=== PATIENT | female | born 1955 | race Caucasian/White ===

== ENCOUNTER 2017-10-16 16:55 | Emergency (ER) | payer OTHER ==
[2017-10-16 18:40] VITALS: BP 148/98; PULSE 84; RESP 16; TEMP 98.7
[2017-10-16] MEDS ORDERED: HYDROcodone/APAP 5-325MG 1 EACH TAB PO STA (18:55)
--- NOTE | 2017-10-16 19:03 | ED ---
General Adult HPI - General Chief complaint: Back Pain/Injury Stated complaint: Back Pain Time Seen by Provider: 10/16/17 18:44 Source: patient, RN notes reviewed Mode of arrival: ambulatory Limitations: no limitations - History of Present Illness Initial comments: 62-year-old female presents to the emergency department for a chief complaint of left sciatic pain times years. Pain has been exacerbated in the past few weeks. Patient states she usually takes [place] for the pain but tested positive for cocaine so her pain doctor refuses to treat her any longer. Patient denies having taken or used cocaine and states an antibiotic is what caused her to test positive. Patient denies any acute injuries. Patient denies any bladder or bowel changes and is urinating frequently. Patient denies IV drug abuse. Patient denies any fever or chills. Patient has no other complaints at this time including shortness of breath, chest pain, abdominal pain, nausea or vomiting, headache, or visual changes. - Related Data Home Medications Medication Instructions Recorded Confirmed Albuterol Inhaler [Ventolin Hfa 1 - 2 puff INHALATION RT-Q6H PRN 07/27/14 Inhaler] Fluticasone Propionate [Flonase 1 spray EA NOSTRIL DAILY 07/27/14 07/28/14 Allergy Relief] HYDROcodone/APAP 10-325MG [[place] 1 tab PO Q8HR PRN 07/27/14 07/28/14 10-325] Isosorbide Mononitrate [Isosorbide 30 mg PO DAILY 07/27/14 07/28/14 Mononitrate ER] Levothyroxine Sodium [Synthroid] 50 mcg PO DAILY 07/27/14 07/28/14 Nitroglycerin Sl Tabs [Nitrostat] 0.4 mg SUBLINGUAL Q5M PRN 07/27/14 07/28/14 Omeprazole [PriLOSEC] 20 mg PO BID 07/27/14 07/28/14 Simvastatin [Zocor] 40 mg PO HS 07/27/14 07/28/14 Cetirizine HCl [Zyrtec] 10 mg PO DAILY 07/28/14 07/28/14 Metoprolol Tartrate [Lopressor] 50 mg PO BID 07/28/14 07/28/14 Previous Rx's Medication Instructions Recorded predniSONE 50 mg PO DAILY #5 tablet 10/16/17 Allergies Allergy/AdvReac Type Severity Reaction Status Date / Time bupropion HCl Allergy Unknown Verified 07/28/14 14:30 [From Wellbutrin] divalproex sodium Allergy Unknown Verified 07/28/14 14:30 [From Depakote] NSAIDS (Non-Steroidal Allergy Unknown Verified 07/28/14 14:30 Anti-Inflamma Penicillins Allergy Unknown Verified 07/28/14 14:30 pregabalin [From Lyrica] Allergy Unknown Verified 07/28/14 14:30 prochlorperazine edisylate Allergy Unknown Verified 07/28/14 14:30 [From Compazine] prochlorperazine maleate Allergy Unknown Verified 07/28/14 14:30 [From Compazine] sulfamethoxazole Allergy Unknown Verified 07/28/14 14:30 [From Bactrim] trimethoprim [From Bactrim] Allergy Unknown Verified 07/28/14 14:30 Review of Systems ROS Statement: Those systems with pertinent positive or pertinent negative responses have been documented in the HPI. ROS Other: All systems not noted in ROS Statement are negative. Past Medical History Past Medical History: COPD, Fibromyalgia, Hyperlipidemia, Hypertension, Osteoarthritis (OA), Rheumatoid Arthritis (RA) History of Any Multi-Drug Resistant Organisms: None Reported Past Surgical History: Hernia Repair, Tubal Ligation Additional Past Surgical History / Comment(s): Umbilical hernia repair Past Anesthesia/Blood Transfusion Reactions: No Reported Reaction Past Psychological History: Anxiety, Bipolar, Depression Smoking Status: Current every day smoker Past Alcohol Use History: None Reported Past Drug Use History: Marijuana - Past Family History Father Family Medical History: Cancer Additional Family Medical History / Comment(s): father from lung ca , also had aortic valve replacement Mother Family Medical History: Hypertension Sister(s) Family Medical History: Cancer Additional Family Medical History / Comment(s): 1 sister that from lung ca, 1 sister from brain aneurysm, 1 sister that passed due to crohn's disease General Exam Limitations: no limitations General appearance: alert, in no apparent distress Head exam: Present: atraumatic, normocephalic, normal inspection Eye exam: Present: normal appearance ENT exam: Present: normal exam, mucous membranes moist Neck exam: Present: normal inspection, full ROM. Absent: tenderness, meningismus, lymphadenopathy Respiratory exam: Present: normal lung sounds bilaterally. Absent: respiratory distress, wheezes, rales, rhonchi, stridor Cardiovascular Exam: Present: regular rate, normal rhythm, normal heart sounds. Absent: systolic murmur, diastolic murmur, rubs, gallop, clicks Extremities exam: Present: other (sensation intact in BLE. pedal pulse 2+ and cap refill < 2 seconds in BLE.) Back exam: Absent: full ROM (patient has 60 flexion and 20 extension of lumbar spine which patient states is norml for her.), tenderness (no thoracic or lumbar spine tenderness) Course Vital Signs 10/16/17 18:38 Temperature 98.7 F Pulse Rate 84 Respiratory 16 Rate Blood Pressure 148/98 O2 Sat by Pulse 94 L Oximetry Medical Decision Making - Medical Decision Making 62-year-old female presents to the emergency department for a chief complaint of left sciatic pain times weeks. Patient has had chronic sciatic pain and has been on narcotics but her pain medicine doctor refuses to treat her at this point. Patient has an appointment with a new pain medicine doctor in 3 months. Patient denies any acute injuries. Patient denies any bladder or bowel changes. On exam neurovascular intact in lower extremities bilaterally. Patient has some limited range of motion of the lumbar spine which she states is normal for her. Patient denies any pain out of proportion than normal for her. Patient was given a [place] in the emergency department. She was not given a prescription for narcotics due to her history. Patient was given a prescription for steroids. She refused a steroid shot. She is aware she needs to return to the emergency Department if she has worsening symptoms or cannot urinate. She will follow up with primary care in 1-2 days. Disposition Clinical Impression: Left sciatic nerve pain Disposition: HOME SELF-CARE Condition: Good Instructions: Sciatica (ED) Additional Instructions: Please take your steroid as directed. Take Tylenol for pain. Follow-up with primary care in 1-2 days. Return to the emergency department if you have worsening symptoms including urinary symptoms. Prescriptions: predniSONE 50 mg PO DAILY #5 tablet Is patient prescribed a controlled substance at d/c from ED?: No Referrals: Addison Flanagan MD [Primary Care Provider] - 1-2 days Time of Disposition: 19:01
== END 2017-10-16 19:08 | disposition home or self-care (01) ==
LOC: EC 16:55
DX: M54.32 Sciatica, left side (principal); G89.29 Other chronic pain; R35.0 Frequency of micturition; J44.9 Chronic obstructive pulmonary disease, unspecified; E78.5 Hyperlipidemia, unspecified; I10 Essential (primary) hypertension; F17.200 Nicotine dependence, unspecified, uncomplicated; Z79.51 Long term (current) use of inhaled steroids; Z79.899 Other long term (current) drug therapy; Z88.8 Allergy status to other drugs, medicaments and biological substances; Z88.6 Allergy status to analgesic agent; Z88.0 Allergy status to penicillin; Z88.2 Allergy status to sulfonamides; Z53.29 Procedure and treatment not carried out because of patient's decision for other reasons
CPT/HCPCS: 99283

== ENCOUNTER → 2019-05-27 | Outpatient (CLI) | payer OTHER ==
--- NOTE | 2019-05-27 15:58 | MR ---
EXAMINATION TYPE: MR brain wo/w con DATE OF EXAM: 05/27/2019 COMPARISON: None HISTORY: Dizziness, bilateral hearing loss, brain lesion TECHNIQUE: Multiplanar, multisequence images of the brain and brainstem is performed without and with IV contras t, utilizing 7 mL intravenous Gadavist . FINDINGS: Diffusion weighted images demonstrate no evidence of a recent infarct or other diffusion ab normality. There is no extra-axial fluid collection. Scattered periventricular and subcortical and j uxtacortical white matter hyperintensities are present on inversion recovery T2-weighted sequences. T he largest on axial image #19 measures approximately 12 mm in AP dimension by 5 mm in transverse dime nsion, there are approximately 10 lesions. In the periventricular white matter on the left there is a focus of low signal on T1, inversion recovery and T2-weighted sequences suggestive of hemosiderin bl oom. The ventricular system and cisternal spaces are normal in size and appearance. The brain volume is age appropriate. Midline structures demonstrate normal morphology, mild prominence of the cerebellopontine angle ciste rn on the left as compared to right may be normal variant rather than represent possible arachnoid cy st.. The craniocervical junction appears within normal limits. Post contrast images demonstrate no abnormal enhancement. The dural venous sinuses appear patent. The visualized sinuses are markable for air-fluid level in the left maxillary sinus and the globes are intact. IMPRESSION: Nonspecific white matter demyelination. Small focus of hemosiderin suspected in the deep white matter on the left may represent remote hemorrhage. Correlate for left maxillary sinusitis. Add itional findings above.
== END | disposition home or self-care (01) ==
LOC: RADMRIMAIN 14:30
PROVIDERS: ATTEND Physician Assistant
DX: R90.89 Other abnormal findings on diagnostic imaging of central nervous system (principal)
CPT/HCPCS: 70553; A9585

== ENCOUNTER 2022-10-12 17:59 | Emergency (ER) | payer OTHER, MEDICARE ==
[2022-10-12] MEDS ORDERED: SODIUM CHLORIDE 0.9% 1,000 ML IV ONE (18:20)
[2022-10-12 18:45] LABS: Basophils # (A) 0.1 k/uL (0-0.2); Basophils % (A) 1 %; Eosinophils % (A) 0 %; HCT 35.5 % (34.0-46.0); HGB 11.8 gm/dL (11.4-16.0); Lymphocytes # (A) 0.6 k/uL (1.0-4.8); Lymphocytes % (A) 8 %; MCH 29.8 pg (25.0-35.0); MCHC 33.2 g/dL (31.0-37.0); MCV 89.8 fL (80.0-100.0); Mean Platelet Volume 7.3; Monocytes # (A) 0.3 k/uL (0-1.0); Monocytes % (A) 4 %; Neutrophils % (A) 86 %; Platelet Count 341 k/uL (150-450); RBC 3.96 m/uL (3.80-5.40); RDW 14.7 % (11.5-15.5)
--- NOTE | 2022-10-12 18:54 | CT ---
EXAMINATION TYPE: CT brain jesse wo con DATE OF EXAM: 10/12/2022 COMPARISON: None HISTORY: AMS and multiple falls. CT DLP: 988.[address] of the brain was performed. The ventricles, basal cisterns and sulci overlying the cerebral convexities demonstrate mild enlargem ent. Small focus of increased signal measuring 3 mm left centrum semiovale may reflect a small focus of c alcification although a small petechial hemorrhage is difficult to exclude. No Additional hyperdense foci seen at this time. There is decreased attenuation about the periventricular white matter and michael p white matter of both cerebral hemispheres, compatible with chronic small vessel ischemia. No mass effects are seen. If symptoms persist consider MRI. Osseous calvarium is intact. IMPRESSION: 1. Small focus of increased signal measuring 3 mm left centrum semiovale may reflect a small focus of calcification although a small petechial hemorrhage is difficult to exclude. CT Cervical Spine: Unenhanced CT of the cervical spine was performed with bone and soft tissue window settings submitted . Coronal and sagittal reconstruction is obtained. There is normal alignment and prevertebral soft tissues. No evidence for acute cervical fracture . Scattered degenerative disc disease and spondylosis. Biapical scarring. IMPRESSION: 1. No evidence for acute fracture or subluxation of the cervical spine.
--- NOTE | 2022-10-12 18:55 | CT ---
EXAMINATION TYPE: CT facial bones wo con DATE OF EXAM: 10/12/2022 COMPARISON: none HISTORY: AMS and multiple falls CT DLP: 988.[address] of the facial bones was performed in the axial and coronal planes. Bone and soft tissu e window settings are submitted. Right infraorbital soft tissue swelling noted. I do not see evidence for displaced facial bone fracture or depressed facial bone fracture. The globes are intact. Paranasal sinuses are well-aerated. IMPRESSION: 1. No evidence for depressed or displaced facial bone fracture.
--- NOTE | 2022-10-12 18:56 | XR ---
EXAMINATION TYPE: XR chest 2V DATE OF EXAM: 10/12/2022 COMPARISON: NONE HISTORY: Shortness of breath TECHNIQUE: Frontal and lateral views of the chest are obtained. FINDINGS: Scattered senescent parenchymal changes noted. Hyperinflation compatible with COPD. No evidence for infiltrate. No evidence for atelectasis. Heart size is stable. Mediastinal structures are stable and grossly unremarkable. No evidence for hilar prominence. Degenerative changes dorsal spine. IMPRESSION: 1. No evidence for acute pulmonary disease.
--- NOTE | 2022-10-12 18:56 | XR ---
EXAMINATION TYPE: XR pelvis AP view DATE OF EXAM: 10/12/2022 CLINICAL HISTORY: pain TECHNIQUE: Single view the pelvis is submitted. FINDINGS: No evidence for fracture, dislocation or bony lesion. Joint spaces are well-preserved. S I joints appear symmetric. IMPRESSION: 1. No acute fracture or dislocation seen. ICD 10 NO FRACTURE, INITIAL EVALUATION
[2022-10-12 18:57] LABS: ALT 44 U/L (4-34); AST 59 U/L (14-36); African American GFR (CKD) 53 (>60 ml/min/1.73 sqM); Alcohol <10 mg/dL; Alkaline Phosphatase 104 U/L (38-126); Anion Gap 7 mmol/L; Blood Urea Nitrogen 17 mg/dL (7-17); Calcium 8.7 mg/dL (8.4-10.2); Carbon Dioxide 30 mmol/L (22-30); Chloride 104 mmol/L (98-107); Glucose 122 mg/dL (74-99); Non-African American GFR(CKD) 46 (>60 ml/min/1.73 sqM); Partial Thromboplastin Time 23.2 sec (22.0-30.0); Potassium 4.7 mmol/L (3.5-5.1); Prothrombin Time 10.5 sec (9.0-12.0); Sodium 141 mmol/L (137-145); Total Bilirubin 0.6 mg/dL (0.2-1.3); Total Protein 6.9 g/dL (6.3-8.2)
[2022-10-12 19:36] VITALS: RESP 16; TEMP 99.9
[2022-10-12 20:05] LABS: Appearance,Urine Cloudy (Clear); Bacteria,Urine Few /hpf; Bilirubin,Urine Negative (Negative); Blood,Urine Negative (Negative); Color,Urine Yellow; Glucose,Urine (UA) Negative (Negative); Ketones,Urine Negative (Negative); Leukocyte Esterase,Urine Small (Negative); Mucus,Urine Rare /hpf; Nitrite,Urine Negative (Negative); Protein,Urine Negative (Negative); RBC,Urine 2 /hpf (0-5); Specific Gravity,Urine 1.013 (1.001-1.035); Squamous Epithelial Cell,Urine 15 /hpf (0-4); Urobilinogen,Urine <2.0 mg/dL (<2.0); WBC,Urine 3 /hpf (0-5)
[2022-10-12 20:07] LABS: Amphetamine Screen,Urine Not Detected (NotDetected); Barbiturate Screen,Urine Not Detected (NotDetected); Benzodiazepines Screen,Urine Not Detected (NotDetected); Cocaine Screen,Urine Not Detected (NotDetected); Methadone Screen, Urine Not Detected (NotDetected); Opiate Screen,Urine Not Detected (NotDetected); Oxycodone Screen, Urine Not Detected (NotDetected); Phencyclidine Screen,Urine Not Detected (NotDetected); Tricyclic Antidepressant,Urine Detected (NotDetected); Urn Cannabinoid Scrn Detected (NotDetected)
[2022-10-12] MEDS ORDERED: TRANEXAMIC 1,000 MG/100ML-NACL 1,000 MG in SALINE 1 100ML.BAG IV STA (20:12)
[2022-10-12] MEDS ORDERED: niCARdipine 20 MG in SODIUM CHLORIDE 0.9% 192 ML IV SCH (20:15)
[2022-10-12 20:44] LABS: VBG PH 7.51 (7.31-7.41)
--- NOTE | 2022-10-12 21:17 | ED ---
General Adult HPI - General Chief complaint: Altered Mental Status Stated complaint: Altered Mental Status Time Seen by Provider: 10/12/22 18:12 Source: family, EMS, RN notes reviewed, old records reviewed Mode of arrival: EMS Limitations: no limitations - History of Present Illness Initial comments: Patient is a 67-year-old female with unknown past medical history who presents via EMS for altered mental status multiple falls over the last week. Apparently a neighbor called EMS and states that the patient has been falling more recently is seems or confused as well. Patient is unable to provide much history. She is alert and oriented 2. Moving all 4 extremities without issue. No real tenderness to palpation anywhere. She does have bruising under the right eye. No other acute complaints at this time. She cannot provide any significant past medical history at this time. Unknown if she is on tenderness. Unknown last fall. Per EMS, they can multiple but they also do not know when the last fall was. - Related Data Home Medications Medication Instructions Recorded Confirmed Buprenorphine HCl/Naloxone HCl 1 film SL BID 10/12/22 10/12/22 [Suboxone 12 mg-3 mg Sl Film] Cetirizine HCl [Zyrtec] 10 mg PO DAILY 10/12/22 10/12/22 Escitalopram [Lexapro] 10 mg PO DAILY 10/12/22 10/12/22 Escitalopram [Lexapro] 20 mg PO DAILY 10/12/22 10/12/22 Levothyroxine Sodium [Synthroid] 50 mcg PO DAILY 10/12/22 10/12/22 Omeprazole [PriLOSEC] 20 mg PO BID 10/12/22 10/12/22 QUEtiapine [SEROquel] 25 mg PO HS 10/12/22 10/12/22 QUEtiapine [SEROquel] 200 mg PO HS 10/12/22 10/12/22 clonazePAM [KlonoPIN] 0.5 mg PO TID 10/12/22 10/12/22 lamoTRIgine [LaMICtal ODT] 200 mg PO DAILY 10/12/22 10/12/22 Allergies Allergy/AdvReac Type Severity Reaction Status Date / Time Unable to Assess Allergy Verified 10/12/22 18:33 Review of Systems ROS Statement: Those systems with pertinent positive or pertinent negative responses have been documented in the HPI. ROS Other: All systems not noted in ROS Statement are negative. Past Medical History Past Medical History: Unable to Obtain History of Any Multi-Drug Resistant Organisms: Unobtainable Past Surgical History: Unable to Obtain Past Psychological History: Unable to Obtain Smoking Status: Unknown if ever smoked Past Alcohol Use History: Unable to Obtain Past Drug Use History: Unable to Obtain General Exam - General Exam Comments Initial Comments: General: Appears in no acute distress. HEAD: Normal with no signs of head trauma. Negative downing sign. Negative raccoon eyes. Patient does have bruising under the right eye. Appears to be a few days old. EYES: PERRLA, EOMI, conjunctiva normal, no discharge. Pupils are 3 mm and equal bilaterally. ENT: Hearing grossly intact, normal oropharynx. RESPIRATORY: Clear breath sounds bilaterally. No wheezes, rales, or rhonchi. C/V: Regular rate and rhythm. S1 and S2 auscultated, peripheral pulses 2+ and intact throughout ABD: Abd is soft, nontender, nondistended EXT: Normal range of motion, no obvious deformity. Pelvis is stable. No midline spine tenderness palpation or deformities. SKIN: Bruising under right eye NEURO: Alert and oriented 2 which is below her baseline. Oriented to person as well as place. Appears to have cranial nerves II through XII intact. No obvious deficits. GCS is 15. NIH, other than the confusion, is 0. Limitations: no limitations Course Vital Signs 10/12/22 10/12/22 10/12/22 18:27 19:30 20:00 Temperature 99.6 F 99.9 F H Pulse Rate 94 84 88 Respiratory 20 16 16 Rate Blood Pressure 139/87 142/83 150/86 O2 Sat by Pulse 95 95 95 Oximetry 10/12/22 10/12/22 21:00 21:48 Temperature Pulse Rate 80 80 Respiratory 16 16 Rate Blood Pressure 144/92 139/84 O2 Sat by Pulse 96 Oximetry Medical Decision Making - Medical Decision Making Was pt. sent in by a medical professional or institution (, PA, BANANA LOADER, urgent care, hospital, or penitentiary...) When possible be specific @ -No Did you speak to anyone other than the patient for history (EMS, parent, family, police, friend...)? What history was obtained from this source @ -EMS, who was able to provide a limited history of recent multiple falls as well as confusion. Did you review nursing and triage notes (agree or disagree)? Why? @ -I reviewed and agree with nursing and triage notes Were old charts reviewed (outside hosp., previous admission, EMS record, old EKG, old radiological studies, urgent care reports/EKG's, penitentiary records)? Report findings @ -No old charts were reviewed Differential Diagnosis (chest pain, altered mental status, abdominal pain women, abdominal pain men, vaginal bleeding, weakness, fever, dyspnea, syncope, headache, dizziness, GI bleed, back pain, seizure, CVA, palpatations, mental health, musculoskeletal)? @ -Differential Altered Mental Status: Hypoglycemia, DKA, hypercapnia, ETOH, overdose, CO poisoning, trauma, myxedema coma, HTN encephalopathy, infection, encephalitis, psychosis, intercranial hemorrhage, hepatic encephalopathy, meningitis, CVA, this is not meant to be an all-inclusive list EKG interpreted by me (3pts min.). @ -As above X-rays interpreted by me (1pt min.). @ -Rest x-ray shows no obvious acute cardiopulmonary process. Pelvis x-ray shows no acute fracture or injury. CT interpreted by me (1pt min.). @ -CT face shows no obvious injury. CT cervical spine shows no obvious acute injury. CT brain does show calcification versus acute small petechial hemorrhage, with hemorrhage more likely as a window shows no evidence of calcification. U/S interpreted by me (1pt. min.). @ -None done What testing was considered but not performed or refused? (CT, X-rays, U/S, labs)? Why? @ -None What meds were considered but not given or refused? Why? @ -None Did you discuss the management of the patient with other professionals (professionals i.e. , PA, BANANA LOADER, lab, RT, psych nurse, social media developer, marketing traffic coordinator, teacher, ground nuclear weapons assembly officer, casey saw operator)? Give summary @ -Discussed the case with Dr. Kerns, senior commissions analyst neurology who agrees that it is likely a petechial hemorrhage. We do not have neurosurgery in house, and although they will likely not have much to contribute in terms of the patient requiring intervention, after discussion with the admission team, Cindy ROJAS of [facility] who would like to transfer the patient decision is made to transfer the patient. I spoke with the accepting ER physician Dr. Alonzo at [facility] after [facility] declined the transfer. Patient was accepted. This is after answer team spoke with Dr. Burks the neurosurgeon on-call at [facility] who accepted the patient. Was smoking cessation discussed for >3mins.? @ -No Was critical care preformed (if so, how long)? @ -Yes, 42 minutes Were there social determinants of health that impacted care today? How? (Homelessness, low income, unemployed, alcoholism, drug addiction, transportation, low edu. Level, literacy, decrease access to med. care, custodial, rehab)? @ -No Was there de-escalation of care discussed even if they declined (Discuss DNR or withdrawal of care, Hospice)? DNR status @ -No What co-morbidities impacted this encounter? (DM, HTN, Smoking, COPD, CAD, Cancer, CVA, ARF, Chemo, Hep., AIDS, mental health diagnosis, sleep apnea, mo rbid obesity)? @ -None Was patient admitted / discharged? Hospital course, mention meds given and route, prescriptions, significant lab abnormalities, going to OR and other pertinent info. @ -Based on the patient's presentation and physical exam, I'm concerned for her altered mental status. We will obtain altered mental status workup. She is unable to provide much information. Does appear she has fallen multiple times over the last week. Vital signs within acceptable limits. EKG showed no signs of acute ischemia. CT brain revealed a small petechial hemorrhage with no evidence of mass effect or midline shift. Remainder of the imaging is unremarkable. Labs are otherwise unremarkable. Possibly a little dehydrated with creatinine of 1.23. At this time, I acted the patient. She remains confused. She'll be transferred. We reached out to [facility] who declined transfer due to unavailability of beds. Also reached out to [facility] who accepted the patient. Accepting physician is Dr. Alonzo. At this time, patient's son did present to the ER sates that the patient's last name is actually Migel. Herbert is her maiden name. Patient's son's name is Fahad, and phone number is [phone]. Was unable to provide much additional information at this time, other than that the patient seems more confused. We were able to confirm at this time the patient is not on blood thinners. Patient will be given TXA, as well as be started on a Cardene drip with instructions to keep systolic blood pressures below 150. No indication for anticoagulation reversal at this time. Patient will be transferred in serious condition. Patient's son did inform us that the patient did recently start Suboxone and since that time seems more confused which could be contributing to her current presentation Undiagnosed new problem with uncertain prognosis? @ -No Drug Therapy requiring intensive monitoring for toxicity (Heparin, Nitro, Insulin, Cardizem)? @ -No Were any procedures done? @ -No Diagnosis/symptom? @ -Altered mental status, falls, petechial intracranial hemorrhage Acute, or Chronic, or Acute on Chronic? @ -Acute Uncomplicated (without systemic symptoms) or Complicated (systemic symptoms)? @ -Complicated Side effects of treatment? @ -No Exacerbation, Progression, or Severe Exacerbation? @ -No Poses a threat to life or bodily function? How? (Chest pain, USA, AR, pneumonia, PE, COPD, DKA, ARF, appy, cholecystitis, CVA, Diverticulitis, Homicidal, Suicidal, threat to staff... and all critical care pts) @ -Yes - Lab Data Result diagrams: 10/12/22 18:20 10/12/22 18:20 Lab Results 10/12/22 10/12/22 10/12/22 Range/Units 18:20 18:20 18:20 WBC 7.0 (3.8-10.6) k/uL RBC 3.96 (3.80-5.40) m/uL Hgb 11.8 (11.4-16.0) gm/dL Hct 35.5 (34.0-46.0) % MCV 89.8 (80.0-100.0) fL MCH 29.8 (25.0-35.0) pg MCHC 33.2 (31.0-37.0) g/dL RDW 14.7 (11.5-15.5) % Plt Count 341 (150-450) k/uL MPV 7.3 Neutrophils % 86 % Lymphocytes % 8 % Monocytes % 4 % Eosinophils % 0 % Basophils % 1 % Neutrophils # 6.0 (1.3-7.7) k/uL Lymphocytes # 0.6 L (1.0-4.8) k/uL Monocytes # 0.3 (0-1.0) k/uL Eosinophils # 0.0 (0-0.7) k/uL Basophils # 0.1 (0-0.2) k/uL PT 10.5 (9.0-12.0) sec INR 1.0 (<1.2) APTT 23.2 (22.0-30.0) sec VBG pH (7.31-7.41) VBG pCO2 (37-51) mmHg VBG HCO3 (24-28) mmol/L Sodium 141 (137-145) mmol/L Potassium 4.7 (3.5-5.1) mmol/L Chloride 104 (98-107) mmol/L Carbon Dioxide 30 (22-30) mmol/L Anion Gap 7 mmol/L BUN 17 (7-17) mg/dL Creatinine 1.23 H (0.52-1.04) mg/dL Est GFR (CKD-EPI)AfAm 53 (>60 ml/min/1.73 sqM) Est GFR (CKD-EPI)NonAf 46 (>60 ml/min/1.73 sqM) Glucose 122 H (74-99) mg/dL Calcium 8.7 (8.4-10.2) mg/dL Total Bilirubin 0.6 (0.2-1.3) mg/dL AST 59 H (14-36) U/L ALT 44 H (4-34) U/L Alkaline Phosphatase 104 (38-126) U/L Ammonia (<30) umol/L Total Protein 6.9 (6.3-8.2) g/dL Albumin 4.0 (3.5-5.0) g/dL Urine Color Urine Appearance (Clear) Urine pH (5.0-8.0) Ur Specific Mcpherson (1.001-1.035) Urine Protein (Negative) Urine Glucose (UA) (Negative) Urine Ketones (Negative) Urine Blood (Negative) Urine Nitrite (Negative) Urine Bilirubin (Negative) Urine Urobilinogen (<2.0) mg/dL Ur Leukocyte Esterase (Negative) Urine RBC (0-5) /hpf Urine WBC (0-5) /hpf Ur Squamous Epith Cells (0-4) /hpf Urine Bacteria (None) /hpf Urine Mucus (None) /hpf Urine Opiates Screen (NotDetected) Ur Oxycodone Screen (NotDetected) Urine Methadone Screen (NotDetected) Ur Propoxyphene Screen (NotDetected) Ur Barbiturates Screen (NotDetected) U Tricyclic Antidepress (NotDetected) Ur Phencyclidine Scrn (NotDetected) Ur Amphetamines Screen (NotDetected) U Methamphetamines Scrn (NotDetected) U Benzodiazepines Scrn (NotDetected) Urine Cocaine Screen (NotDetected) U Marijuana (THC) Screen (NotDetected) Serum Alcohol <10 mg/dL Influenza Type A (PCR) (Not Detectd) Influenza Type B (PCR) (Not Detectd) RSV (PCR) (Not Detectd) SARS-CoV-2 (PCR) (Not Detectd) 10/12/22 10/12/22 10/12/22 Range/Units 18:20 19:05 19:25 WBC (3.8-10.6) k/uL RBC (3.80-5.40) m/uL Hgb (11.4-16.0) gm/dL Hct (34.0-46.0) % MCV (80.0-100.0) fL MCH (25.0-35.0) pg MCHC (31.0-37.0) g/dL RDW (11.5-15.5) % Plt Count (150-450) k/uL MPV Neutrophils % % Lymphocytes % % Monocytes % % Eosinophils % % Basophils % % Neutrophils # (1.3-7.7) k/uL Lymphocytes # (1.0-4.8) k/uL Monocytes # (0-1.0) k/uL Eosinophils # (0-0.7) k/uL Basophils # (0-0.2) k/uL PT (9.0-12.0) sec INR (<1.2) APTT (22.0-30.0) sec VBG pH (7.31-7.41) VBG pCO2 (37-51) mmHg VBG HCO3 (24-28) mmol/L Sodium (137-145) mmol/L Potassium (3.5-5.1) mmol/L Chloride (98-107) mmol/L Carbon Dioxide (22-30) mmol/L Anion Gap mmol/L BUN (7-17) mg/dL Creatinine (0.52-1.04) mg/dL Est GFR (CKD-EPI)AfAm (>60 ml/min/1.73 sqM) Est GFR (CKD-EPI)NonAf (>60 ml/min/1.73 sqM) Glucose (74-99) mg/dL Calcium (8.4-10.2) mg/dL Total Bilirubin (0.2-1.3) mg/dL AST (14-36) U/L ALT (4-34) U/L Alkaline Phosphatase (38-126) U/L Ammonia <9 (<30) umol/L Total Protein (6.3-8.2) g/dL Albumin (3.5-5.0) g/dL Urine Color Yellow Urine Appearance Cloudy H (Clear) Urine pH 7.0 (5.0-8.0) Ur Specific Mcpherson 1.013 (1.001-1.035) Urine Protein Negative (Negative) Urine Glucose (UA) Negative (Negative) Urine Ketones Negative (Negative) Urine Blood Negative (Negative) Urine Nitrite Negative (Negative) Urine Bilirubin Negative (Negative) Urine Urobilinogen <2.0 (<2.0) mg/dL Ur Leukocyte Esterase Small H (Negative) Urine RBC 2 (0-5) /hpf Urine WBC 3 (0-5) /hpf Ur Squamous Epith Cells 15 H (0-4) /hpf Urine Bacteria Few H (None) /hpf Urine Mucus Rare H (None) /hpf Urine Opiates Screen Not Detected (NotDetected) Ur Oxycodone Screen Not Detected (NotDetected) Urine Methadone Screen Not Detected (NotDetected) Ur Propoxyphene Screen Not Detected (NotDetected) Ur Barbiturates Screen Not Detected (NotDetected) U Tricyclic Antidepress Detected H (NotDetected) Ur Phencyclidine Scrn Not Detected (NotDetected) Ur Amphetamines Screen Not Detected (NotDetected) U Methamphetamines Scrn Not Detected (NotDetected) U Benzodiazepines Scrn Not Detected (NotDetected) Urine Cocaine Screen Not Detected (NotDetected) U Marijuana (THC) Screen Detected H (NotDetected) Serum Alcohol mg/dL Influenza Type A (PCR) Not Detected (Not Detectd) Influenza Type B (PCR) Not Detected (Not Detectd) RSV (PCR) Not Detected (Not Detectd) SARS-CoV-2 (PCR) Not Detected (Not Detectd) 10/12/22 Range/Units 20:15 WBC (3.8-10.6) k/uL RBC (3.80-5.40) m/uL Hgb (11.4-16.0) gm/dL Hct (34.0-46.0) % MCV (80.0-100.0) fL MCH (25.0-35.0) pg MCHC (31.0-37.0) g/dL RDW (11.5-15.5) % Plt Count (150-450) k/uL MPV Neutrophils % % Lymphocytes % % Monocytes % % Eosinophils % % Basophils % % Neutrophils # (1.3-7.7) k/uL Lymphocytes # (1.0-4.8) k/uL Monocytes # (0-1.0) k/uL Eosinophils # (0-0.7) k/uL Basophils # (0-0.2) k/uL PT (9.0-12.0) sec INR (<1.2) APTT (22.0-30.0) sec VBG pH 7.51 H (7.31-7.41) VBG pCO2 33 L (37-51) mmHg VBG HCO3 27 (24-28) mmol/L Sodium (137-145) mmol/L Potassium (3.5-5.1) mmol/L Chloride (98-107) mmol/L Carbon Dioxide (22-30) mmol/L Anion Gap mmol/L BUN (7-17) mg/dL Creatinine (0.52-1.04) mg/dL Est GFR (CKD-EPI)AfAm (>60 ml/min/1.73 sqM) Est GFR (CKD-EPI)NonAf (>60 ml/min/1.73 sqM) Glucose (74-99) mg/dL Calcium (8.4-10.2) mg/dL Total Bilirubin (0.2-1.3) mg/dL AST (14-36) U/L ALT (4-34) U/L Alkaline Phosphatase (38-126) U/L Ammonia (<30) umol/L Total Protein (6.3-8.2) g/dL Albumin (3.5-5.0) g/dL Urine Color Urine Appearance (Clear) Urine pH (5.0-8.0) Ur Specific Mcpherson (1.001-1.035) Urine Protein (Negative) Urine Glucose (UA) (Negative) Urine Ketones (Negative) Urine Blood (Negative) Urine Nitrite (Negative) Urine Bilirubin (Negative) Urine Urobilinogen (<2.0) mg/dL Ur Leukocyte Esterase (Negative) Urine RBC (0-5) /hpf Urine WBC (0-5) /hpf Ur Squamous Epith Cells (0-4) /hpf Urine Bacteria (None) /hpf Urine Mucus (None) /hpf Urine Opiates Screen (NotDetected) Ur Oxycodone Screen (NotDetected) Urine Methadone Screen (NotDetected) Ur Propoxyphene Screen (NotDetected) Ur Barbiturates Screen (NotDetected) U Tricyclic Antidepress (NotDetected) Ur Phencyclidine Scrn (NotDetected) Ur Amphetamines Screen (NotDetected) U Methamphetamines Scrn (NotDetected) U Benzodiazepines Scrn (NotDetected) Urine Cocaine Screen (NotDetected) U Marijuana (THC) Screen (NotDetected) Serum Alcohol mg/dL Influenza Type A (PCR) (Not Detectd) Influenza Type B (PCR) (Not Detectd) RSV (PCR) (Not Detectd) SARS-CoV-2 (PCR) (Not Detectd) - EKG Data -: EKG Interpreted by Me EKG Comments: 12-lead Electrocardiogram Interpretation Note EKG was reviewed and interpreted by myself. 12-lead ECG performed at 2028 is interpreted by me as revealing normal sinus rhythm at a rate of 74 beats per minute. Marion is normal. There were no ST or T wave abnormalities to suggest myocardial ischemia or injury. R wave progression across the precordium was satisfactory. By my interpretation this EKG is non-diagnostic for acute ischemia. Critical Care Time Critical Care Time: Yes Total Critical Care Time: 45 Disposition Clinical Impression: Altered mental status, Intracranial hemorrhage, Fall Disposition: OTHER INSTITUTION NOT DEFINED Condition: Serious Referrals: None,Stated [Primary Care Provider] - 1-2 days Time of Disposition: 20:57 - Out of Hospital Transfer - Req. Specs Out of Hospital Transfer - Requested Specifics: Other Emergency Center (Transferred to [facility] for further care for neurosurgery evaluation.)
[2022-10-12 21:18] VITALS: PULSE 80
[2022-10-12 21:48] VITALS: BP 139/84
== END 2022-10-12 21:49 | disposition other institution (70) ==
LOC: MERGE 17:59 → EC 17:59
DX: S06.360A Traumatic hemorrhage of cerebrum, unspecified, without loss of consciousness, initial encounter (principal); R41.82 Altered mental status, unspecified; Z20.822 Contact with and (suspected) exposure to COVID-19; W19.XXXA Unspecified fall, initial encounter
CPT/HCPCS: 36415; 93005; 80053; 82140; 82803; 85025; 85610; 85730; 81001; 80306; 87636; 72170; 71046; 72125; 70486; 70450; 99291; 96365; G0480; 80320

== ENCOUNTER 2023-03-22 14:31 | Emergency (ER) | payer MEDICARE, OTHER ==
[2023-03-22] MEDS ORDERED: ONDANSETRON 4 MG/2 ML VIAL IVP STA (14:36)
[2023-03-22 14:39] VITALS: RESP 18
--- NOTE | 2023-03-22 15:01 | ED ---
General Adult HPI - General Chief complaint: Headache Stated complaint: Headache, High BP Time Seen by Provider: 03/22/23 14:35 Source: patient, EMS, RN notes reviewed, old records reviewed Mode of arrival: EMS Limitations: no limitations - History of Present Illness Initial comments: This is a 67-year-old female presents emergency Department stating that a few months ago she had intercranial hemorrhage and she was transferred to [facility]. Patient states the last 2 and half weeks she's had a headache and has been pretty constant and he may be a little bit worse today but in general is been about the same and she just can't take it anymore wants to make sure she doesn't have another bleed. Patient denies any visual disturbance or speech disturbance. Patient denies any numbness or weakness. Patient denies any chest pain difficulty breathing shortest breath. Patient denies any fever chills or cough. - Related Data Home Medications Medication Instructions Recorded Confirmed Albuterol Inhaler [Ventolin Hfa 1 - 2 puff INHALATION RT-Q6H PRN 07/27/14 03/22/23 Inhaler] Nitroglycerin Sl Tabs [Nitrostat] 0.4 mg SUBLINGUAL Q5M PRN 07/27/14 03/22/23 Cetirizine HCl [Zyrtec] 10 mg PO DAILY 10/12/22 03/22/23 Escitalopram [Lexapro] 10 mg PO DAILY 10/12/22 03/22/23 Escitalopram [Lexapro] 20 mg PO DAILY 10/12/22 03/22/23 Levothyroxine Sodium [Synthroid] 50 mcg PO DAILY 10/12/22 03/22/23 Omeprazole [PriLOSEC] 20 mg PO BID 10/12/22 03/22/23 Rosuvastatin [Crestor] 20 mg PO HS 03/22/23 03/22/23 Allergies Allergy/AdvReac Type Severity Reaction Status Date / Time Penicillins Allergy Unknown Verified 03/22/23 15:51 Childhood pregabalin [From Lyrica] Allergy tongue Verified 03/22/23 15:51 swelling, stinging pain in nerves sulfamethoxazole Allergy Unknown Verified 03/22/23 15:51 [From Bactrim] Childhood trimethoprim [From Bactrim] Allergy Unknown Verified 03/22/23 15:51 Childhood alprazolam [From Xanax] AdvReac Hallucinations, Verified 03/22/23 15:51 confusion, odd behavior bupropion HCl AdvReac seizures Verified 03/22/23 15:51 [From Wellbutrin] divalproex sodium AdvReac Hallucinati Verified 03/22/23 15:51 [From Depakote] ons lorazepam [From Ativan] AdvReac Hallucinations, Verified 03/22/23 15:51 confusion, odd behavior NSAIDS (Non-Steroidal AdvReac Unknown Verified 03/22/23 15:51 Anti-Inflamma prochlorperazine edisylate AdvReac Muscle Verified 03/22/23 15:51 [From Compazine] spasms, involuntary movements prochlorperazine maleate AdvReac Muscle Verified 03/22/23 15:51 [From Compazine] spasms, involuntary movements quetiapine [From Seroquel] AdvReac Hallucinati Verified 03/22/23 15:51 ons tramadol [From Ultram] AdvReac Hallucinations, Verified 03/22/23 15:51 confusion, odd behavior Review of Systems ROS Statement: Those systems with pertinent positive or pertinent negative responses have been documented in the HPI. ROS Other: All systems not noted in ROS Statement are negative. Past Medical History Past Medical History: COPD, Fibromyalgia, Hyperlipidemia, Hypertension, Osteoarthritis (OA), Rheumatoid Arthritis (RA) Additional Past Medical History / Comment(s): Brain bleed 2022, History of Any Multi-Drug Resistant Organisms: None Reported, Unobtainable Past Surgical History: Hernia Repair, Tubal Ligation Additional Past Surgical History / Comment(s): Umbilical hernia repair Past Anesthesia/Blood Transfusion Reactions: No Reported Reaction Past Psychological History: Anxiety, Bipolar, Depression, Unable to Obtain Smoking Status: Current every day smoker Past Alcohol Use History: None Reported, Unable to Obtain Past Drug Use History: Marijuana, Unable to Obtain - Past Family History Father Family Medical History: Cancer Additional Family Medical History / Comment(s): father from lung ca, also had aortic valve replacement Mother Family Medical History: Hypertension Sister(s) Family Medical History: Cancer Additional Family Medical History / Comment(s): 1 sister that from lung ca, 1 sister from brain aneurysm, 1 sister that passed due to crohn's disease General Exam - General Exam Comments Initial Comments: GENERAL: Patient is well-developed and well-nourished. Patient is nontoxic and well- hydrated and is in mild distress. ENT: Neck is soft and supple. No significant lymphadenopathy is noted. Oropharynx is clear. Moist mucous membranes. Neck has full range of motion without eliciting any pain. EYES: The sclera were anicteric and conjunctiva were pink and moist. Extraocular movements were intact and pupils were equal round and reactive to light. Eyelids were unremarkable. PULMONARY: Unlabored respirations. Good breath sounds bilaterally. No audible rales rhonchi or wheezing was noted. CARDIOVASCULAR: There is a regular rate and rhythm without any murmurs gallops or rubs. ABDOMEN: Soft and nontender with normal bowel sounds. SKIN: Skin is clear with no lesions or rashes and otherwise unremarkable. NEUROLOGIC: Patient is alert and oriented x3. Cranial nerves II through XII are grossly intact. Motor and sensory are also intact. Normal speech, volume and content. Symmetrical smile. MUSCULOSKELETAL: Normal extremities with adequate strength and full range of motion. LYMPHATICS: No significant lymphadenopathy is noted PSYCHIATRIC: Mildly anxious Limitations: no limitations Course Vital Signs 03/22/23 03/22/23 14:33 16:26 Temperature 98.2 F Pulse Rate 90 56 L Respiratory 18 18 Rate Blood Pressure 161/94 151/88 O2 Sat by Pulse 97 98 Oximetry Medical Decision Making - Medical Decision Making EKG is interpreted by myself EKG shows a sinus rhythm at 63 bpm DE interval 243 QRS is 92 QT interval 388 QTC is 356. Patient's EKG shows no ST segment elevation or depression Was pt. sent in by a medical professional or institution (, PA, [facility], urgent care, hospital, or long-term...) When possible be specific @ -No Did you speak to anyone other than the patient for history (EMS, parent, family, police, friend...)? What history was obtained from this source @ -No Did you review nursing and triage notes (agree or disagree)? Why? @ -I reviewed and agree with nursing and triage notes Were old charts reviewed (outside hosp., previous admission, EMS record, old EKG, old radiological studies, urgent care reports/EKG's, long-term records)? Report findings @ -I reviewed prior radiological studies Differential Diagnosis (chest pain, altered mental status, abdominal pain women, abdominal pain men, vaginal bleeding, weakness, fever, dyspnea, syncope, headache, dizziness, GI bleed, back pain, seizure, CVA, palpatations, mental health, musculoskeletal)? @ -Differential Headache: Migraine, tension, cluster, carbon monoxide, central venous thrombosis, pension karma temporal arteritis, acute closure glaucoma, intercranial hemorrhage, mastoiditis, sinusitis, head injury, this is not meant to be an all-inclusive list. EKG interpreted by me (3pts min.). @ -As above X-rays interpreted by me (1pt min.). @ -None done CT interpreted by me (1pt min.). @ -The brain shows no acute normalities U/S interpreted by me (1pt. min.). @ -None done What testing was considered but not performed or refused? (CT, X-rays, U/S, labs)? Why? @ -None What meds were considered but not given or refused? Why? @ -None Did you discuss the management of the patient with other professionals (pr ofessionals i.e. , PA, [facility] [employer], lab, RT, psych nurse, social service assistant, camouflage specialist, teacher, special technical operations officer, case packer)? Give summary @ -No Was smoking cessation discussed for >3mins.? @ -No Was critical care preformed (if so, how long)? @ -No Were there social determinants of health that impacted care today? How? (Homelessness, low income, unemployed, alcoholism, drug addiction, transport ation, low edu. Level, literacy, decrease access to med. care, usp, rehab)? @ -No Was there de-escalation of care discussed even if they declined (Discuss DNR or withdrawal of care, Hospice)? DNR status @ -No What co-morbidities impacted this encounter? (DM, HTN, Smoking, COPD, CAD, Cancer, CVA, ARF, Chemo, Hep., AIDS, mental health diagnosis, sleep apnea, morbid obesity)? @ -None Was patient admitted / discharged? Hospital course, mention meds given and route, prescriptions, significant lab abnormalities, going to OR and other pertinent info. @ -He came in complaining of headache she was concerned that she had another bleed in the brain that she had a few months ago. Given Ativan and she was feeling much better after that she was also given her blood pressure medication and she throughout because she didn't know she needed to take it. Patient was also given some Ofirmev for the headache. After all the medications given I went back in and spoke with the patient she was felt considerably better and wanted to be discharged home. Undiagnosed new problem with uncertain prognosis? @ -No Drug Therapy requiring intensive monitoring for toxicity (Heparin, Nitro, Insulin, Cardizem)? @ -No Were any procedures done? @ -No Diagnosis/symptom? @ -Headache Acute, or Chronic, or Acute on Chronic? @ -Acute Uncomplicated (without systemic symptoms) or Complicated (systemic symptoms)? @ -Complicated Side effects of treatment? @ -No Exacerbation, Progression, or Severe Exacerbation? @ -No Poses a threat to life or bodily function? How? (Chest pain, USA, NM, pneumonia, PE, COPD, DKA, ARF, appy, cholecystitis, CVA, Diverticulitis, Homicidal, Suicidal, threat to staff... and all critical care pts) @ -No - Lab Data Result diagrams: 03/22/23 14:53 03/22/23 14:53 Lab Results 03/22/23 03/22/23 03/22/23 Range/Units 14:53 14:53 14:53 WBC 7.7 (3.8-10.6) k/uL RBC 5.06 (3.80-5.40) m/uL Hgb 14.8 (11.4-16.0) gm/dL Hct 42.7 (34.0-46.0) % MCV 84.3 (80.0-100.0) fL MCH 29.3 (25.0-35.0) pg MCHC 34.7 (31.0-37.0) g/dL RDW 14.2 (11.5-15.5) % Plt Count 241 (150-450) k/uL MPV 8.3 Neutrophils % 67 % Lymphocytes % 27 % Monocytes % 4 % Eosinophils % 0 % Basophils % 1 % Neutrophils # 5.2 (1.3-7.7) k/uL Lymphocytes # 2.1 (1.0-4.8) k/uL Monocytes # 0.3 (0-1.0) k/uL Eosinophils # 0.0 (0-0.7) k/uL Basophils # 0.0 (0-0.2) k/uL PT 11.0 (10.0-12.5) sec INR 1.0 (<1.2) APTT 19.2 L (22.0-30.0) sec Sodium 140 (137-145) mmol/L Potassium 3.4 L (3.5-5.1) mmol/L Chloride 101 (98-107) mmol/L Carbon Dioxide 26 (22-30) mmol/L Anion Gap 13 mmol/L BUN 15 (7-17) mg/dL Creatinine 0.89 (0.52-1.04) mg/dL Est GFR (CKD-EPI)AfAm 78 (>60 ml/min/1.73 sqM) Est GFR (CKD-EPI)NonAf 68 (>60 ml/min/1.73 sqM) Glucose 107 H (74-99) mg/dL Calcium 9.9 (8.4-10.2) mg/dL Total Bilirubin 0.9 (0.2-1.3) mg/dL AST 24 (14-36) U/L ALT 13 (4-34) U/L Alkaline Phosphatase 85 (38-126) U/L Total Protein 7.5 (6.3-8.2) g/dL Albumin 4.6 (3.5-5.0) g/dL Disposition Clinical Impression: Headache Disposition: HOME SELF-CARE Instructions (If sedation given, give patient instructions): Acute Headache (ED) Is patient prescribed a controlled substance at d/c from ED?: No Referrals: None,Stated [Primary Care Provider] - 1-2 days Time of Disposition: 17:33
[2023-03-22] MEDS: LORazepam 2 MG/ML INJ IV STA ×2 (15:14→15:15)
[2023-03-22 15:27] LABS: Basophils % (A) 1 %; Eosinophils % (A) 0 %; HCT 42.7 % (34.0-46.0); HGB 14.8 gm/dL (11.4-16.0); Lymphocytes # (A) 2.1 k/uL (1.0-4.8); Lymphocytes % (A) 27 %; MCH 29.3 pg (25.0-35.0); MCHC 34.7 g/dL (31.0-37.0); MCV 84.3 fL (80.0-100.0); Mean Platelet Volume 8.3; Monocytes # (A) 0.3 k/uL (0-1.0); Monocytes % (A) 4 %; Neutrophils # (A) 5.2 k/uL (1.3-7.7); Neutrophils % (A) 67 %; Platelet Count 241 k/uL (150-450); RBC 5.06 m/uL (3.80-5.40); RDW 14.2 % (11.5-15.5); WBC 7.7 k/uL (3.8-10.6)
[2023-03-22 15:39] LABS: ALT 13 U/L (4-34); AST 24 U/L (14-36); African American GFR (CKD) 78 (>60 ml/min/1.73 sqM); Albumin 4.6 g/dL (3.5-5.0); Alkaline Phosphatase 85 U/L (38-126); Anion Gap 13 mmol/L; Blood Urea Nitrogen 15 mg/dL (7-17); Calcium 9.9 mg/dL (8.4-10.2); Carbon Dioxide 26 mmol/L (22-30); Chloride 101 mmol/L (98-107); Glucose 107 mg/dL (74-99); Non-African American GFR(CKD) 68 (>60 ml/min/1.73 sqM); Potassium 3.4 mmol/L (3.5-5.1); Sodium 140 mmol/L (137-145); Total Bilirubin 0.9 mg/dL (0.2-1.3); Total Protein 7.5 g/dL (6.3-8.2)
[2023-03-22 15:40] LABS: Partial Thromboplastin Time 19.2 sec (22.0-30.0)
--- NOTE | 2023-03-22 15:53 | CT ---
EXAMINATION TYPE: CT brain wo con DATE OF EXAM: 03/22/2023 COMPARISON: 10/12/2022 HISTORY: Headache, recent intercranial hemmorage CT DLP: 1138.[address] of the brain was performed. The ventricles, basal cisterns and sulci overlying the cerebral convexities demonstrate mild enlargem ent. Hyperdense focus high left centrum semiovale is felt to reflect a focal calcification rather jada n hemorrhage. There is no evidence for intracranial hemorrhage or sulcal effacement. There is decreased attenuation about the periventricular white matter and deep white matter of both c erebral hemispheres, compatible with chronic small vessel ischemia. Differential diagnosis does inclu de demyelination. No mass effects are seen.No midline shift. Osseous calvarium is intact. If symptoms persist consider MRI. IMPRESSION: 1. Age related atrophic and chronic small vessel ischemic change without acute intracranial process s een at this time.Hyperdense focus high left centrum semiovale is felt to reflect a focal calcificatio n rather than hemorrhage.
[2023-03-22] MEDS ORDERED: METOPROLOL SUCCINATE (ER) 25 MG TAB.ER.24H PO STA (16:08)
[2023-03-22] MEDS ORDERED: ACETAMINOPHEN IV (For NPO) 1,000 MG in EMPTY BAG 1 BAG IVPB ONE (16:30)
[2023-03-22 18:04] VITALS: BP 143/93; PULSE 57; TEMP 98
== END 2023-03-22 17:59 | disposition home or self-care (01) ==
LOC: EC 14:31
DX: R51.9 Headache, unspecified (principal); J44.9 Chronic obstructive pulmonary disease, unspecified; E78.5 Hyperlipidemia, unspecified; M06.9 Rheumatoid arthritis, unspecified; I10 Essential (primary) hypertension; M19.90 Unspecified osteoarthritis, unspecified site; F41.9 Anxiety disorder, unspecified; F31.9 Bipolar disorder, unspecified; F17.200 Nicotine dependence, unspecified, uncomplicated; Z88.0 Allergy status to penicillin; Z88.1 Allergy status to other antibiotic agents; Z88.2 Allergy status to sulfonamides; Z88.5 Allergy status to narcotic agent; Z88.6 Allergy status to analgesic agent; Z88.8 Allergy status to other drugs, medicaments and biological substances; Z79.899 Other long term (current) drug therapy
CPT/HCPCS: 36415; 80053; 85025; 85610; 85730; 70450; 99285; 96374; 96375; J2405; J0131

== ENCOUNTER → 2023-11-05 | Outpatient (CLI) | payer MEDICARE, OTHER | END | disposition home or self-care (01) | LOC: LABWHC1 09:05 | PROVIDERS: ATTEND Psychiatry & Neurology Neurology | DX: G31.84 Mild cognitive impairment of uncertain or unknown etiology (principal); G60.8 Other hereditary and idiopathic neuropathies | CPT/HCPCS: 36415; 82607; 82746; 82947; 83036 ==

== ENCOUNTER → 2024-01-01 | Outpatient (CLI) | payer MEDICARE, OTHER ==
--- NOTE | 2024-01-01 22:40 | MR ---
EXAMINATION TYPE: MR brain wo con DATE OF EXAM: 01/01/2024 COMPARISON: 05/27/2019 HISTORY: mild cognitive impairment, bilateral occipital neuralgia. CONTRAST: Performed utilizing 0 mL intravenous Gadavist gadolinium contrast. TECHNIQUE: Multiplanar, multiecho imaging on a 3.0 Ramya magnet is performed through the brain. Stud y is performed within 24 hours of arrival to the hospital. The craniovertebral junction is normal. The pituitary is normal. Optic chiasm as visualized appears normal. Diffusion-weighted imaging is performed. No abnormal hyperintensity is present to suggest an acute i ntracranial infarct or acute ischemic change. There is a hypointense area within the posterior medial left centrum semiovale. This was present prev iously. Underlying vascular malformation may be present. Old posttraumatic hemorrhage could be consid ered within the differential. No significant interval change. There is some mild periventricular white matter hyperintensity on the left centrum semiovale and less er degree right anterior centrum semiovale. Chronic white matter ischemic changes could be considered . Multiple sclerosis could be considered. Largest area measures 1.0 x 0.3 cm which is similar to comp arison. Previous measurement 1.2 x 0.5 cm Ventricles and sulci are appropriate for the patient age. IMPRESSION: 1. Chronic appearing periventricular white matter ischemic changes, stable from comparison. 2. Suggestion of stable old punctate hemorrhage could be remote trauma or a vascular malformation in the posterior medial left centrum semiovale. [facility], , 01/01/2024 10:38 PM
== END | disposition home or self-care (01) ==
LOC: RADMRIMAIN 19:03
PROVIDERS: ATTEND Psychiatry & Neurology Neurology
DX: M54.81 Occipital neuralgia (principal); I67.82 Cerebral ischemia
CPT/HCPCS: 70551